=== PATIENT | female | born 1980 | race American Indian/Alaskan Native ===

== ENCOUNTER 2018-09-10 20:38 | Emergency (ER) | payer OTHER ==
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
--- NOTE | 2018-09-10 22:57 | XRay Report ---
PROCEDURE: XR SPINE CERVICAL 2-3V TECHNIQUE: AP, lateral, and odontoid views of the cervical spine HISTORY: neck pain COMPARISONS: None . FINDINGS: The vertebral body heights and disc spaces are well maintained. The alignment is normal. No preverteb ral soft tissue swelling is seen. The odontoid is intact. There are large osteophytes from C4 through C6 identified. IMPRESSION: No acute abnormality of the cervical spine. This document is electronically signed by Radha Bills MD., September 10 2018 10:55:48 PM ET
[2018-09-10] MEDS ORDERED: NORCO 5/325 PO ONE (23:20)
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
[2018-09-11 00:30] VITALS: BP 148/91
== END 2018-09-11 00:29 | disposition home or self-care (01) ==
LOC: ED 20:38
DX: S16.1XXA Strain of muscle, fascia and tendon at neck level, initial encounter (principal); S39.012A Strain of muscle, fascia and tendon of lower back, initial encounter; S96.911A Strain of unspecified muscle and tendon at ankle and foot level, right foot, initial encounter; Z79.899 Other long term (current) drug therapy; Z88.0 Allergy status to penicillin; V43.52XA Car driver injured in collision with other type car in traffic accident, initial encounter; Y93.89 Activity, other specified; Y92.488 Other paved roadways as the place of occurrence of the external cause; Y99.8 Other external cause status
CPT/HCPCS: 72040; 99283